=== PATIENT | male | born 1955 | race Two or more races ===

== ENCOUNTER 2017-09-25 23:33 | Emergency (ER) | payer BC ==
[~2017-09-25] VITALS: Ht 165.1 cm; Wt 72.6 kg
[2017-09-26] MEDS ORDERED: ATOR10TA PO (00:11)
[2017-09-26] MEDS ORDERED: ASPI81TA44 PO (00:11)
[2017-09-26] MEDS ORDERED: LISI-603 PO (00:11)
[2017-09-26] MEDS ORDERED: SERT50TA PO (00:11)
[2017-09-26] MEDS ORDERED: LINA5TAB PO (00:11)
[2017-09-26] MEDS ORDERED: TESTOSTERONE IM (00:11)
[2017-09-26] MEDS ORDERED: METF500T6 PO (00:11)
[2017-09-26] MEDS ORDERED: LOSA50TA21 PO (00:11)
[2017-09-26] MEDS ORDERED: LORAZEPAM 0.5 MG TABLET PO ONE (00:15)
[2017-09-26] MEDS ORDERED: CLONIDINE HCL 0.1 MG TABLET PO ONE (00:15)
[2017-09-26] MEDS ORDERED: CLONIDINE HCL 0.1 MG TABLET ONE (00:15)
[2017-09-26] MEDS ORDERED: ACETAMINOPHEN ES 500 MG TABLET PO ONE (00:15)
[2017-09-26] MEDS ORDERED: LORAZEPAM 1 MG TABLET ONE (00:15)
[2017-09-26] MEDS ORDERED: ACETAMINOPHEN ES 500 MG TABLET ONE (00:20)
--- NOTE | 2017-09-26 00:29 | NUR ---
URINE SENT, EKG DONE, MEDS ADMINISTERED
[2017-09-26 00:38] LABS: *BILIRUBIN,URIN NEGATIVE (NEGATIVE); *BLOOD, URINE NEGATIVE (NEGATIVE); *CLARITY,URINE CLEAR (CLEAR); *COLOR,URINE YELLOW (YELLOW); *KETONES,URINE NEGATIVE (NEGATIVE); *PROTEIN,URINE NEGATIVE (NEGATIVE); *UROBILINOGEN,URINE 0.2 E.U./dl (NORMAL); LEUKOCYTE ESTERASE ,URINE NEGATIVE (NEGATIVE); NITRITE, URINE NEGATIVE (NEGATIVE); UGLUCOSE NEGATIVE (NEGATIVE)
[2017-09-26 00:47] LABS: RBC,URINE 0-3 /HPF (0-3)
[2017-09-26 00:48] LABS: BACTERIA,URINE FEW /HPF (NONE SEEN); MUCUS,URINE FEW /LPF (0-FEW); SQUAMOUS EPITHELIAL CELL,UR FEW /HPF (NONE SEEN)
--- NOTE | 2017-09-26 01:09 | NUR ---
MSE COMPLETED, PT D/C'D HOME, ACI/RX X2 GIVEN. PT AMBULATED W/O DIFF/TOOK ALL BELONGINGS. COPY OF UA AND EKG GIVEN.
[2017-09-26 01:10] VITALS: BP 147/84
== END 2017-09-26 01:11 | disposition home or self-care (01) ==
LOC: ER 23:39
DX: I10 Essential (primary) hypertension (principal); R51 Headache; F41.9 Anxiety disorder, unspecified; G47.00 Insomnia, unspecified; E11.9 Type 2 diabetes mellitus without complications; Z79.82 Long term (current) use of aspirin; Z79.84 Long term (current) use of oral hypoglycemic drugs; Z79.899 Other long term (current) drug therapy
CPT/HCPCS: 93005; A4663; A9150